=== PATIENT | male | born 1985 | race Two or more races ===

== ENCOUNTER → 2022-09-04 12:18 | Emergency (ER) | payer OTHER ==
[~2022-09-04] VITALS: Ht 167.6 cm; Wt 84.0 kg
[~2022-09-04 12:18] MED LIST: ACET-1079 PO; ACETAMINOPHEN 500 MG TAB PO ONE
[2022-09-04 16:29] VITALS: BP 125/71
== END | disposition home or self-care (01) ==
LOC: ER 12:18
DX: S33.5XXA Sprain of ligaments of lumbar spine, initial encounter (principal); S83.92XA Sprain of unspecified site of left knee, initial encounter; S83.91XA Sprain of unspecified site of right knee, initial encounter; R10.32 Left lower quadrant pain; Z79.899 Other long term (current) drug therapy; V43.52XA Car driver injured in collision with other type car in traffic accident, initial encounter; Y93.89 Activity, other specified; Y92.410 Unspecified street and highway as the place of occurrence of the external cause; Y99.8 Other external cause status
CPT/HCPCS: 70450; 71250; 72125; 73562; 74176

== ENCOUNTER 2023-04-20 10:22 | Emergency (ER) | payer BC, OTHER ==
[~2023-04-20] VITALS: Ht 172.7 cm; Wt 87.5 kg
[~2023-04-20 10:22] MED LIST changes: -ACETAMINOPHEN 500 MG TAB PO ONE
[2023-04-20 11:17] VITALS: BP 126/79
[2023-04-20] MEDS ORDERED: TETANUS-DIPTH-ACEL PERTUSSIS 0.5ML SYR Tdap IM ONE (11:30)
== END 2023-04-20 11:24 | disposition home or self-care (01) ==
LOC: ER 10:22
DX: S91.239A Puncture wound without foreign body of unspecified toe(s) with damage to nail, initial encounter (principal); X58.XXXA Exposure to other specified factors, initial encounter; Y93.89 Activity, other specified; Y92.89 Other specified places as the place of occurrence of the external cause; Y99.8 Other external cause status
CPT/HCPCS: 90471; 90715